=== PATIENT | female | born 1980 | race Caucasian/White ===

== ENCOUNTER → 2023-12-08 13:30 | Outpatient (REF) | payer BC, SELFPAY | LOC: WDC 13:30 | PROVIDERS: ATTENDING PHYSICIAN Obstetrics & Gynecology; FAMILY PHYSICIAN Emergency Medicine | DX: Z12.31 Encounter for screening mammogram for malignant neoplasm of breast (principal); R06.09 Other forms of dyspnea | CPT/HCPCS: 71046; 77063; 77067 ==

== ENCOUNTER → 2023-12-25 11:07 | Outpatient (REF) | payer BC, SELFPAY | LOC: DHCBS HW 11:07 | PROVIDERS: ATTENDING PHYSICIAN Internal Medicine Cardiovascular Disease; FAMILY PHYSICIAN Emergency Medicine | DX: R00.2 Palpitations (principal) | CPT/HCPCS: 93306 ==

== ENCOUNTER → 2024-12-10 13:05 | Outpatient (REF) | payer BC, SELFPAY | LOC: WDC 13:05 | PROVIDERS: ATTENDING PHYSICIAN Obstetrics & Gynecology; FAMILY PHYSICIAN Family Medicine | DX: Z12.31 Encounter for screening mammogram for malignant neoplasm of breast (principal) | CPT/HCPCS: 77063; 77067 ==